=== PATIENT | female | born 1960 | race Caucasian/White ===

== ENCOUNTER → 2016-12-13 | Outpatient (CLI) | payer BC | END | disposition home or self-care (01) | LOC: RAD.S 12-08 10:35 → PTH.S 10:15 → RAD.S 11:00 | DX: R93.6 Abnormal findings on diagnostic imaging of limbs (principal); R93.0 Abnormal findings on diagnostic imaging of skull and head, not elsewhere classified; M75.91 Shoulder lesion, unspecified, right shoulder; M19.011 Primary osteoarthritis, right shoulder; M75.51 Bursitis of right shoulder; R60.0 Localized edema; Z85.3 Personal history of malignant neoplasm of breast ==